=== PATIENT | male | born 1955 | race Caucasian/White ===

== ENCOUNTER 2018-07-03 07:08 | Day surgery (SDC) | payer OTHER | END 2018-07-03 20:50 | disposition home or self-care (01) | LOC: CIR.AMB 07:08 | DX: K40.90 Unilateral inguinal hernia, without obstruction or gangrene, not specified as recurrent (principal) ==

== ENCOUNTER → 2019-09-21 | Emergency (ER) | payer OTHER ==
[~2019-09-21] VITALS: Ht 177.8 cm; Wt 78.9 kg
[~2019-09-21] MED LIST: ARICEPT10 MG; RESTORIL15 M1; SEROQUEL200 MG; ZOLOFT100 MG
== END | disposition left against medical advice (07) ==
LOC: ER 19:20
DX: Z53.20 Procedure and treatment not carried out because of patient's decision for unspecified reasons (principal)

== ENCOUNTER 2021-04-12 17:31 | Emergency (ER) | payer OTHER ==
[~2021-04-12] VITALS: Ht 165.1 cm; Wt 65.8 kg
[2021-04-12] MEDS ORDERED: ZESTRIL10 M1 (17:50)
== END 2021-04-13 01:02 | disposition home or self-care (01) ==
LOC: ER 17:31
DX: I95.89 Other hypotension (principal); E86.0 Dehydration; Z03.818 Encounter for observation for suspected exposure to other biological agents ruled out

== ENCOUNTER 2021-09-26 16:59 | Inpatient (IN) | payer OTHER ==
[~2021-09-26 16:59] MED LIST changes: +ZESTRIL10 M1
[2021-10-03] MEDS ORDERED: LOSARTAN POTASS25 MG PO (09:42)
[2021-10-03] MEDS ORDERED: ARICEPT10 MG PO (09:42)
[2021-10-03] MEDS ORDERED: AMLODIPINE BESYL5 MG PO (09:42)
[2021-10-03] MEDS ORDERED: LORAZEPAM1 MG PO (09:43)
[2021-10-03] MEDS ORDERED: Seroquel PO (09:44)
[2021-10-03] MEDS ORDERED: SERTRALINE HCL100 MG PO (09:44)
[2021-10-03] MEDS ORDERED: RESTORIL15 M1 PO (09:45)
[2021-10-03] MEDS ORDERED: BENADRYL25 MG PO (09:47)
== END 2021-10-03 13:46 | disposition home or self-care (01) | DRG 641 ==
LOC: MEDJ 16:59 → SEC-K 16:59 → MEDJ 17:18
PROVIDERS: ADMIT Internal Medicine Hematology & Oncology; ATTEND Internal Medicine Hematology & Oncology
DX: E86.0 Dehydration (principal); F02.81 Dementia in other diseases classified elsewhere, unspecified severity, with behavioral disturbance; E44.0 Moderate protein-calorie malnutrition; R44.2 Other hallucinations; K59.09 Other constipation; G31.83 Neurocognitive disorder with Lewy bodies; E87.8 Other disorders of electrolyte and fluid balance, not elsewhere classified; I10 Essential (primary) hypertension; R41.82 Altered mental status, unspecified; Z74.01 Bed confinement status